=== PATIENT | female | born 1935 | race Two or more races ===

== ENCOUNTER 2020-03-28 16:27 | Emergency (ER) | payer MEDICARE, MEDICAID ==
[~2020-03-28] VITALS: Ht 152.4 cm; Wt 52.2 kg
[2020-03-28 17:39] VITALS: BP 143/74
--- NOTE | 2020-03-28 17:39 | NUR ---
ED Nurse Note:pt. came from home with right lower leg wound for iv antibiotic treatment
--- NOTE | 2020-03-28 17:54 | Emergency Room Report ---
History of Present Illness General Chief Complaint: General Complaint Source: Family Member Present Illness HPI Disclaimer: Please note that this report is being documented using [employer] technology. This can lead to erroneous entry secondary to incorrect interpretation by the dictating instrument. HPI: 84-year-old female history of diabetes presents with family secondary to a wound to the right lower extremity. Apparently she had a fall about 1 week ago. She was seen by her primary doctor who started her on home IV antibiotics. [facility] came to give antibiotics today but could not establish IV access. Patient then sent to the ER. I discussed the case with patient's primary care doctor, Dr. Alcocer. Patient denies any fevers nausea vomiting shortness of breath or other complaints at this time. 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 Hx Dialysis: No History Of Psychiatric Problem: No Hx Neurological Problems: Yes - dementia Hx Cerebrovascular Accident: No Hx Seizures: No Review of Systems All Other Systems: negative except mentioned in HPI Physical Exam Vital Signs Date Time Temp Pulse Resp B/P (MAP) Pulse Ox O2 Delivery O2 Flow Rate FiO2 03/28/20 16:52 98.1 103 16 143/74 (97) 95 Room Air Sp02 EP Interpretation: reviewed, normal General Appearance: well appearing, no apparent distress Head: normocephalic, atraumatic Eyes: bilateral eye PERRL, bilateral eye EOMI ENT: hearing grossly normal, moist mucus membranes Neck: full range of motion, supple Respiratory: lungs clear, normal breath sounds, no rhonchi, no respiratory distress, no retraction, no wheezing Cardiovascular #1: normal peripheral pulses, regular rate, rhythm, no murmur Gastrointestinal: non tender, soft, non-distended, no guarding Neurologic: alert, oriented x3, no focal defects Skin: normal color, warm/dry, other - Wound noted to right lower extremity along the inner calf approximately 3 x 4 cm, erythema and blistering noted, nontender to palpation. Medical Decision Making Diagnostic Impression: Primary Impression: Wound of right leg ER Course Patient presented for right lower extremity wound. She has arranged home IV antibiotics her primary doctor however they cannot establish an IV. We are unable to place a PICC line at this time however we can establish IV and give 1 dose of vancomycin. I will discharge patient home with the IV in place to continue with outpatient follow-up with home health. The plan was discussed with the patient family and patient's primary care doctor. Patient stable for discharge at this time. The wound did not appear purulent Last Vital Signs Date Time Temp Pulse Resp B/P (MAP) Pulse Ox O2 Delivery O2 Flow Rate FiO2 03/28/20 17:39 98.1 102 16 143/74 95 Room Air Condition: Stable Harpreet Perez M.D. Mar 28, 2020 17:54
[2020-03-28] MEDS ORDERED: Vancomycin 1 GM in NS 275 ML IV ONE (18:00)
--- NOTE | 2020-03-28 19:25 | NUR ---
ED Nurse Note: Received report from JANY Benton. Pt laying in bed, AAOx1. No complaints from pt at the moment. No signs of pain or discomfort noted. Vital signs stable.
[2020-03-28 19:50] VITALS: BP 141/76
--- NOTE | 2020-03-28 19:50 | NUR ---
ER DISCHARGE NOTE: Patient is cleared to be discharged per ERMD, pt is aox1 per baseline, on room air, with stable vital signs. Pt's daughter was given dc instructions and paperwork, pt's daughter was able to verbalize understanding, pt id band removed. Per EDMD order leave IV in place, pt will continue home IV antibiotics with home health RN. pt was wheeled out to private vehicle accompanied by daughter. pt's daughter took all belongings.
== END 2020-03-28 19:50 | disposition home or self-care (01) ==
LOC: EMR 17:30
DX: S81.801A Unspecified open wound, right lower leg, initial encounter (principal); E78.00 Pure hypercholesterolemia, unspecified; H54.8 Legal blindness, as defined in USA; E11.9 Type 2 diabetes mellitus without complications; F03.90 Unspecified dementia, unspecified severity, without behavioral disturbance, psychotic disturbance, mood disturbance, and anxiety; Z88.0 Allergy status to penicillin; W01.0XXA Fall on same level from slipping, tripping and stumbling without subsequent striking against object, initial encounter; Y93.9 Activity, unspecified; Y92.9 Unspecified place or not applicable
CPT/HCPCS: 96365; 99284; J3370; J7050